=== PATIENT | female | born 1980 | race Two or more races ===

== ENCOUNTER 2017-04-11 16:23 | Emergency (ER) | payer OTHER, MEDICAID ==
[~2017-04-11 16:23] MED LIST: CELEXA40 MG PO; HYDROCODONE/APAP; ZOFRAN ODT4 MG/UDTAB PO
[2017-04-11] MEDS ORDERED: EXCEDRIN MIGRA1 EAC3 PO (16:40)
[2017-04-11 17:15] LABS: BASO % 0.1 % (0-2); EOS % 0.1 % (0-7); HCT-HEMATOCRIT 39.2 % (34.0-49.0); HGB-HEMOGLOBIN 13.2 gm/dl (12.0-15.5); IMMATURE GRANULOCYTES ABSOLUTE 0.02 tho/cmm (0-0.03); IMMATURE GRANULOCYTES PERCENT 0.2 % (0-0.3); LYMPH % 4.5 % (20-45); LYMPH ABSOLUTE COUNT 0.5 tho/cmm (0.8-4.5); MCH (MEAN CORPUSCULAR HGB) 29.1 pg (28.0-32.0); MCHC MEAN CORPUSCULAR HGB CONC 33.7 % (32.0-36.0); MCV (MEAN CELL VOLUME) 86.5 fl (82.0-96.0); MEAN PLATELET VOLUME 10.1 cmc (9.4-12.4); MONO % 5.2 % (0-12); MONOCYTE ABSOLUTE COUNT 0.6 tho/cmm (0.0-1.2); NEUTROPHIL ABSOLUTE COUNT 9.7 tho/cmm (1.6-8.0); NEUTROPHIL-AUTOMATED 9.7 tho/cmm (1.6-8.0); NEUTROPHILS % 89.9 % (40-80); PLATELET COUNT 304 tho/cmm (150-450); RED BLOOD COUNT 4.53 mil/cmm (4.00-5.20); RED CELL DISTRIBUTION WIDTH 13.4 % (12.4-16.4); WHITE BLOOD COUNT 10.8 tho/cmm (4.0-10.0)
[2017-04-11 17:23] LABS: PREGNANCY-SERUM NEGATIVE (NEGATIVE)
[2017-04-11 17:33] LABS: ALB/GLOB RATIO 0.8 (0.8-2.0); ALKALINE PHOSPHATASE 77 U/L (33-138); ALT/SGPT 32 U/L (12-78); ANION GAP 13 mmol/L (0-20); AST/SGOT 22 U/L (10-40); BILIRUBIN,TOTAL 0.4 mg/dl (0-1.5); BLOOD UREA NITROGEN 17 mg/dl (6-24); CALCIUM 8.7 mg/dl (8.5-10.5); CARBON DIOXIDE-VENOUS 25 mmol/L (22-32); CHLORIDE 103 mmol/l (96-110); CREATININE 0.78 mg/dl (0.50-1.10); GLUCOSE 99 mg/dL (70-110); LIPASE 116 U/L (73-393); POTASSIUM 3.5 mmol/L (3.7-5.1); SODIUM 137 mmol/L (135-145); eGFR VALUE FOR BLACK >90 mL/Min
[2017-04-11 17:38] LABS: ALBUMIN 3.8 g/dl (3.5-5.0)
[2017-04-11 18:37] LABS: URINE BILIRUBIN NEGATIVE (NEG); URINE BLOOD NEGATIVE (NEG); URINE GLUCOSE (UA) NEGATIVE (NEG); URINE KETONE NEGATIVE (NEG); URINE LEUKOCYTE ESTERASE POSITIVE (NEG); URINE NITRITE NEGATIVE (NEG); URINE PROTEIN NEGATIVE (NEG)
[2017-04-11 18:40] LABS: URINE APPEARANCE HAZY; URINE COLOR YELLOW
[2017-04-11 18:45] LABS: URINE BACTERIA 1+; URINE MUCUS 1+; URINE RBC 0 /[HPF] (0-5); URINE WBC 0-3 /[HPF] (0-5)
[2017-04-11] MEDS ORDERED: PROMETHAZINE HC25 M3 PO (20:15)
[2017-04-11] MEDS ORDERED: CARAFATE1 G2 PO (20:15)
== END 2017-04-11 20:30 ==
LOC: EDMED 16:23
PROVIDERS: Emergency Medicine
DX: R10.9 Unspecified abdominal pain (principal); R07.9 Chest pain, unspecified; Z90.49 Acquired absence of other specified parts of digestive tract
CPT/HCPCS: J1885; J2405; J7030; Q9967